=== PATIENT | male | born 1995 | race Caucasian/White ===

== ENCOUNTER 2019-04-04 21:46 | Emergency (ER) | payer MEDICAID ==
[~2019-04-04] VITALS: Ht 177.8 cm; Wt 117.0 kg
[2019-04-04] MEDS ORDERED: IBUPROFEN 600MG TABLET PO ONE (23:00)
[2019-04-05 00:29] VITALS: BP 133/83
== END 2019-04-05 00:35 | disposition home or self-care (01) ==
LOC: ER 23:09
DX: R07.81 Pleurodynia (principal); F12.10 Cannabis abuse, uncomplicated; F17.200 Nicotine dependence, unspecified, uncomplicated; Z90.89 Acquired absence of other organs
CPT/HCPCS: 71100; 99283